=== PATIENT | male | born 1960 | race Caucasian/White ===

== ENCOUNTER 2016-07-10 09:18 | Outpatient (CLI) | payer OTHER ==
--- NOTE | 2016-07-10 14:19 | ULT ---
RIGHT UPPER QUADRANT ULTRASOUND: 07/10/16 CLINICAL HISTORY: Hepatitis C. No prior imaging comparison. FINDINGS: No focal hepatic lesion. No acute gallbladder pathology. Common duct is normal at 5 mm. No ascites. IMPRESSION: No acute abnormality of the right upper quadrant evident sonographically. POS: [facility]
== END 2016-07-10 09:19 | disposition home or self-care (01) ==
LOC: BURULT 09:18
PROVIDERS: ATTEND Internal Medicine Gastroenterology
DX: B18.2 Chronic viral hepatitis C (principal)
CPT/HCPCS: 76705

== ENCOUNTER 2016-07-29 13:36 | Outpatient (CLI) | payer OTHER ==
--- NOTE | 2016-07-29 18:47 | ULT ---
TESTICULAR ULTRASOUND 07/29/16 Ultrasonography of the scrotum was performed for evaluation of a palpable abnormality on the left. [facility] images were provided as well as summary worksheets and these were reviewed. The testicles both appear normal. The right testicle measures 4.5 x 2.1 x 4.3 cm. The left measures 4.4 x 2.3 x 3.3 cm. Blood flow is present in each. No mass was seen. The right epididymis appears normal. The left epididymal head is slightly large at 1.5 cm which may or may not be significant. A trace of free fluid was seen on the right side of the scrotum. There was no sign of varicocele. No bowel within the scrotal sac to suggest a hernia was imaged. The palpable abnormality felt by the patient was noted to be inferior to the left scrotal sac. It is oblong in nature measuring 3.9 x 0.9 x 1.4 cm. it is not clear what the structure is or what it is connected to. It seems a bit large to be an enlarged lymph node. The tech noted that it appeared to be an enlargement of the soft tissues, but the finding simply was not definitive, other than to say that it was not related to the testicles and is located inferior to the scrotal sac. IMPRESSION: 1. Normal testicles. 2. No evidence of hernia. 3. [place] soft tissue enlargement on the left side correlating with the palpable abnormality. I t is not clear from the ultrasound what its etiology is. POS: HOME
== END 2016-07-29 13:37 | disposition home or self-care (01) ==
LOC: BURULT 13:36
PROVIDERS: ATTEND Specialist
DX: K40.90 Unilateral inguinal hernia, without obstruction or gangrene, not specified as recurrent (principal)
CPT/HCPCS: 76870; 93976

== ENCOUNTER 2017-04-14 08:53 | Outpatient (CLI) | payer OTHER ==
--- NOTE | 2017-04-14 21:11 | ULT ---
RIGHT UPPER QUADRANT ULTRASOUND: 04/14/17 Ultrasonography of the right upper quadrant was performed and compared with the prior study dated 06/22 11/08. The liver was borderline in size, measuring 15.8 cm in oblique sagittal length. It may have increased in size very slightly since the prior exam. Internally, it appears normal. There was no sign of dila zachariah ducts or space occupying disease. Hepatic venous flow is towards the liver as expected. The gallb ladder contained no signs of stones or wall thickening. A trace of sludge was seen within it. The com mon bile duct was a normal 4 mm in caliber. The pancreas was not seen completely, but all visualized sections appeared normal. The right kidney w as normal in appearance and measured 10.5 cm in length. IMPRESSION: 1. No acute right upper quadrant findings. 2. Trace of sludge in the gallbladder. 3. Hepatic size seems slightly large, but no parenchymal abnormalities were seen. POS: HOME
== END 2017-04-14 08:54 | disposition home or self-care (01) ==
LOC: BURULT 08:53
PROVIDERS: ATTEND Internal Medicine Gastroenterology
DX: K74.60 Unspecified cirrhosis of liver (principal); B18.2 Chronic viral hepatitis C
CPT/HCPCS: 76705

== ENCOUNTER 2017-12-15 09:09 | Outpatient (CLI) | payer OTHER ==
[2017-12-15 18:03] LABS: #Basophils 0.1 thou/uL (0.0-0.2); #Eosinphils 0.2 thou/uL (0.0-0.7); #Monocytes 0.4 thou/uL (0.11-0.59); #Neutrophils 2.5 thou/uL (1.40-6.50); %Basophils 1.3 % (0.0-1.0); %Eosinophils 4.2 % (0.0-10.0); %Lymphocytes 39.4 % (21.0-51.0); %Monocytes 7.5 % (0.0-10.0); %Neutrophils 47.5 % (42.0-75.0); Hemoglobin 16.2 g/dL (14.0-18.0); Mean Corpuscular HGB CONC 33.5 g/dL (32.0-36.0); Mean Corpuscular Hemoglobin 31.6 pg (27.0-31.0); Mean Corpuscular Volume 94.3 fL (78.0-98.0); Mean Platelet Volume 7.7 fL (7.4-10.4); Platelet Count 141 thou/uL (130-400); RBC Distribution Width 11.6 % (11.5-14.5); Red Blood Cell (RBC) Count 5.11 mill/uL (4.70-6.10); White Blood Cell (WBC) Count 5.2 thou/uL (4.8-10.8)
--- NOTE | 2017-12-15 19:29 | ULT ---
RIGHT UPPER QUADRANT ULTRASOUND: 12/15/17 Ultrasonography of the right upper quadrant was performed. The liver is borderline in size at 15.7 cm in length, but internally it appears normal. No masses, dilated ducts, or other focal findings were found. The gallbladder contains no signs of stones or wall thickening. The common bile duct was a normal 4 m m wide. The pancreas appears normal. The right kidney is 10.9 cm in length and appears normal. Hepati c portal venous blood flow was towards the liver as expected. IMPRESSION: Liver size upper normal. Otherwise, exam unremarkable. POS: HOME
[2017-12-15 19:39] LABS: ALT (SGPT) 35 U/L (8-55); AST (SGOT) 26 U/L (5-34); Albumin 4.5 g/dL (3.5-5.0); Alkaline Phosphatase 65 U/L (40-150); BUN (Urea Nitrogen) 15 mg/dL (8.4-25.7); Bilirubin, Total 0.7 mg/dL (0.2-1.2); Calc. Creatinine Clearance 0 mL/min (70-130); Calcium 9.6 mg/dL (7.8-10.44); Carbon Dioxide 26 mmol/L (22-29); Chloride 103 mmol/L (98-107); Estimated GFR-MDRD 88; Glucose 104 mg/dL (70-105); Potassium 4.5 mmol/L (3.5-5.1); Sodium 139 mmol/L (136-145)
[2017-12-15 23:01] LABS: Globulin 3.2 g/dL (2.4-3.5); Protein, Total 7.7 g/dL (6.0-8.3)
[2017-12-15 23:05] LABS: Anion Gap 15 mmol/L (10-20)
== END 2017-12-15 09:10 | disposition home or self-care (01) ==
LOC: BURULT 09:09
PROVIDERS: ATTEND Internal Medicine Gastroenterology
DX: B18.2 Chronic viral hepatitis C (principal); K74.60 Unspecified cirrhosis of liver
CPT/HCPCS: 36415; 76705; 80053; 82105; 85025

== ENCOUNTER 2018-10-18 10:06 | Outpatient (CLI) | payer OTHER ==
--- NOTE | 2018-10-19 07:44 | ULT ---
HEPATIC ULTRASOUND: 10/18/18 Ultrasonography of the right upper quadrant was performed for evaluation of this patient with known c irrhosis and history of hepatitis C. Documentary images and worksheets were provided and reviewed. The liver is borderline in size, measuring 16.5 cm in oblique sagittal dimension. No space occupying lesion, dilated ducts, or parenchymal abnormality was seen. Hepatic portal flow was towards the liver and flow in hepatic veins was away, all as expected. The gallbladder appears normal with no signs o f stones or wall thickening. The common bile duct is a normal 5 mm wide. The visible portions of the pancreas appear normal. The right kidney was 10 cm long and was long and was normal in appearance wit h no sign of mass or hydronephrosis. IMPRESSION: Borderline hepatic size with no focal internal findings. Hepatic vascular flow is normal. POS: HOME
== END 2018-10-18 10:07 | disposition home or self-care (01) ==
LOC: BURULT 10:06
PROVIDERS: ATTEND Internal Medicine Gastroenterology
DX: K74.60 Unspecified cirrhosis of liver (principal); Z86.19 Personal history of other infectious and parasitic diseases
CPT/HCPCS: 76705